=== PATIENT | male | born 1955 | race Two or more races ===

== ENCOUNTER 2022-12-17 18:10 | Emergency (ER) | payer OTHER, SELFPAY ==
[2022-12-17 18:15] VITALS: BP 156/89; PULSE 76; RESP 20; TEMP 36.6; O2SAT 96; BMI 29.6
--- NOTE | 2022-12-17 18:30 | CT_ITS ---
The [address] [address] Patient Name: JIMBO CASTILLO MRN: [facility]:[id number] date: 1955 Sex: M Assigned Patient Location: ER Current Patient Location: ER Accession/Order Number: [id number] Exam Date: 12/17/2022 18:53 Report Date: 12/17/2022 19:36 At the request of: MELISSA BONILLA Procedure: CT abdomen pelvis wo con EXAM: CT abdomen pelvis wo con HISTORY: Kidney stone COMPARISON: 09/10/2021 TECHNIQUE: Axial CT imaging was performed through the abdomen and pelvis without intravenous contrast. Multiplanar reformats were performed. Dose reduction techniques were achieved by using automated exposure control and/or adjustment of mA and/or kV according to patient size and/or use of iterative reconstruction technique. FINDINGS: Lung bases: Lung bases are clear. No pleural effusion. GI upper: Unremarkable. Liver: Normal size and contour. Gallbladder: Cholelithiasis without evidence of acute cholecystitis. Biliary system: No intra or extrahepatic biliary ductal dilatation. Pancreas: Unremarkable. Spleen: There is splenomegaly, the spleen measuring approximately 14 cm AP. Adrenal glands: Normal adrenal glands. Kidneys/ureters: Again, there are numerous simple cysts bilaterally. No nephrolithiasis. Both ureters are normal in caliber and course to the bladder. Vessels: No aneurysmal dilatation of the aorta. Atherosclerotic disease is noted. Retroperitoneum: No lymphadenopathy. Small bowel: No wall thickening or dilatation. Colon: No wall thickening or dilatation. Appendix: Appendix is identified with normal appearance. Peritoneal cavity: No free fluid or pneumoperitoneum. Lower : Unremarkable. Bones:Multilevel spondylosis. No acute bony abnormality. Soft tissues: No acute finding. Additional findings: None. CT/CT abdomen pelvis wo con IMPRESSION: Numerous simple renal cysts consistent with the known polycystic kidney disease. Splenomegaly. No renal or ureteral calculus is identified. Electronically authenticated by: Skyler RIVAS Date: 12/17/2022 19:36
--- NOTE | 2022-12-17 18:31 | ED_ITS ---
HPI - General Adult General Chief complaint: Back Pain/Injury Stated complaint: BACK PAIN Time Seen by Provider: 12/17/22 18:26 Source: patient Mode of arrival: walk-in Limitations: no limitations History of Present Illness HPI narrative: Patient is a 67-year-old male who presents to the emergency department for a five day history of pain across his low back. He states he thought he saw some blood in his urine. He called the SD and his SD doctor told him that he has a history of fatty liver and needed to come to the emergency department for lab work. He has had no fevers or vomiting but does feel nauseous. He has a history of crystals in the kidneys although he denies that he has never had a kidney stone. Pain is worse with movement in the low back and he does occasionally have some tingling to the right leg. He denies any specific mechanism of injury or trauma. No medications taken prior to arrival. Related Data Previous Rx's Medication Instructions Recorded hydrocodone 5 mg-acetaminophen 325 1 tab PO Q6H PRN pain #8 tabs 12/17/22 mg tablet methocarbamol 750 mg tablet 750 mg PO TID PRN pain #20 tabs 12/17/22 ondansetron 4 mg disintegrating 4 mg PO Q6H PRN nausea and 12/17/22 tablet vomiting #12 tabs Allergies Allergy/AdvReac Type Severity Reaction Status Date / Time amoxicillin Allergy Severe shortness Verified 12/17/22 18:19 of breath lisinopril Allergy Severe Verified 12/17/22 18:19 Review of Systems ROS Constitutional Denies: fever or chills Ears, nose, mouth, and throat Denies: throat pain Respiratory Denies: shortness of breath Gastrointestinal Reports: nausea; Denies: abdominal pain or vomiting Genitourinary Reports: blood in urine; Denies: painful urination Musculoskeletal Reports: back pain Neurological Denies: headache Hematologic/Lymphatic Denies: easy bruising Exam Narrative Exam Narrative: Gen.: Awake, alert, in no distress Head: Normocephalic, atraumatic ENT: Moist mucous membranes Respiratory: No respiratory distress Back: No bony point tenderness of the T-spine or L-spine. Diffuse tenderness of the paraspinal muscles of the lumbar spine. No obvious deformity or step-off. No CVA tenderness. Extremities: Moves extremities equally, no injuries noted. Normal dorsiflexion and plantarflexion of the lower extremities with no decrease in sensation to the medial thighs, normal hip flexion bilaterally Psych: Normal mood and affect Neuro: No focal neuro deficit Skin: Warm, dry, intact Constitutional Vital Signs, click to edit/add: Last Vital Signs Temp 98 F 12/17/22 18:15 Pulse 76 12/17/22 18:15 Resp 20 12/17/22 18:15 BP 156/89 H 12/17/22 18:15 Pulse Ox 96 12/17/22 18:15 O2 Del Method Room Air 12/17/22 18:15 Course Vital Signs Vital signs: Vital Signs Temperature 98 F 12/17/22 18:15 Pulse Rate 76 12/17/22 18:15 Respiratory Rate 20 12/17/22 18:15 Blood Pressure 156/89 H 12/17/22 18:15 Pulse Oximetry 96 12/17/22 18:15 Oxygen Delivery Method Room Air 12/17/22 18:15 Temperature 98 F 12/17/22 18:15 Pulse Rate 76 12/17/22 18:15 Respiratory Rate 20 12/17/22 18:15 Blood Pressure 156/89 H 12/17/22 18:15 Pulse Oximetry 96 12/17/22 18:15 Oxygen Delivery Method Room Air 12/17/22 18:15 Medical Decision Making MDM Narrative Medical decision making narrative: Patient with chronic kidney disease, kidney function has improved as well as LFTs improved from previous lab studies last year. Patient with no leukocytosis or evidence of urinary tract infection. CT scan shows polycystic kidneys which is not a new finding for the patient, no other evidence of acute abnormalities noted on scan. Patient's exam and history are consistent with musculoskeletal pain. Patient will be discharged home with muscle relaxants and a short course of analgesics. Follow-up with PCP and return to the Emergency Room if symptoms change or worsen. Medical Records Medical records reviewed: Yes I reviewed the patient's medical records Lab Data Lab results reviewed: Yes I reviewed the patient's lab results Labs: Lab Results 12/17/22 12/17/22 Range/Units 18:45 18:50 WBC 5.7 (4.0-11.0) 10^3/uL RBC 4.66 L (4.70-6.10) 10^6/uL Hgb 15.4 (14.0-18.0) g/dL Hct 43.6 (42.0-54.0) % MCV 93.6 (80.0-94.0) fL MCH 33.0 (25.9-34.0) pg MCHC 35.3 H (29.9-35.2) g/dL RDW 13.1 (11.0-15.0) % Plt Count 82 L (150-450) 10^3/uL MPV 11.5 (9.5-13.5) fL Neut % (Auto) 67.2 (43.0-75.0) % Lymph % (Auto) 23.6 (20.5-60.0) % [place] % (Auto) 7.0 (1.7-12.0) % Eos % (Auto) 1.6 (0.9-7.0) % Baso % (Auto) 0.4 (0.2-2.0) % Neut # (Auto) 3.8 (1.4-6.5) 10^3/uL Lymph # (Auto) 1.4 (1.2-3.8) 10^3/uL [place] # (Auto) 0.4 (0.3-0.8) 10^3/uL Eos # (Auto) 0.1 (0.0-0.7) 10^3/uL Baso # (Auto) 0.0 (0.0-0.1) 10^3/uL Abs Immat Gran (auto) 0.01 (0.00-0.03) 10^3/uL Imm/Tot Granulo (auto) 0.2 (0.0-0.5) % Sodium 136 (136-145) mmol/L Potassium 3.7 (3.5-5.1) mmol/L Chloride 99 (98-107) mmol/L Carbon Dioxide 25.8 (21.0-32.0) mmol/L Anion Gap 14.9 BUN 20.0 H (7.0-18.0) mg/dL Creatinine 1.56 H (0.70-1.30) mg/dL Est GFR ( Amer) 54 L (>=60) Est GFR (Non-Af Amer) 45 L (>=60) BUN/Creatinine Ratio 12.8 Glucose 157 H (74-106) mg/dL Calcium 9.4 (8.5-10.1) mg/dL Total Bilirubin 1.1 H (0.2-1.0) mg/dL AST 55 H (15-37) U/L ALT 61 (16-63) U/L Alkaline Phosphatase 148 H (46-116) U/L Total Protein 8.1 (6.4-8.2) g/dL Albumin 3.9 (3.4-5.0) g/dL Globulin 4.2 g/dL Albumin/Globulin Ratio 0.9 Urine Color Dk. yellow (YELLOW) Urine Clarity Clear (CLEAR) Urine pH 6.0 (5.0-9.0) Ur Specific [place] 1.020 (1.005-1.025) Urine Protein 100 A (NEG/TRACE) mg/dL Urine Glucose (UA) Negative (NEGATIVE) mg/dL Urine Ketones Trace A (NEGATIVE) mg/dL Urine Occult Blood Small A (NEGATIVE) Urine Nitrite Negative (NEGATIVE) Urine Bilirubin Negative (NEGATIVE) Urine Urobilinogen 2.0 A (0.2-1.0) EU/dL Ur Leukocyte Esterase Negative (NEGATIVE) Urine RBC 0-2 (0-2) #/HPF Urine WBC 0-2 A (NONE SEEN) #/HPF Ur Squamous Epith Cells Rare (NONE/RARE) #/LPF Urine Crystals None seen (None Seen) #/HPF Urine Bacteria None seen (NONE SEEN) #/HPF Urine Casts None seen (NONE SEEN) #/LPF Urine Mucus None seen (NONE SEEN) Ur Culture Indicated? No Imaging Data CT scan - abdomen: Attestation: I have reviewed the pertinent imaging results. Radiologist's impression: Procedure: CT abdomen pelvis wo con EXAM: CT abdomen pelvis wo con HISTORY: Kidney stone COMPARISON: 09/10/2021 TECHNIQUE: Axial CT imaging was performed through the abdomen and pelvis without intravenous contrast. Multiplanar reformats were performed. Dose reduction techniques were achieved by using automated exposure control and/or adjustment of mA and/or kV according to patient size and/or use of iterative reconstruction technique. FINDINGS: Lung bases: Lung bases are clear. No pleural effusion. GI upper: Unremarkable. Liver: Normal size and contour. Gallbladder: Cholelithiasis without evidence of acute cholecystitis. Biliary system: No intra or extrahepatic biliary ductal dilatation. Pancreas: Unremarkable. Spleen: There is splenomegaly, the spleen measuring approximately 14 cm AP. Adrenal glands: Normal adrenal glands. Kidneys/ureters: Again, there are numerous simple cysts bilaterally. No nephrolithiasis. Both ureters are normal in caliber and course to the bladder. Vessels: No aneurysmal dilatation of the aorta. Atherosclerotic disease is noted. Retroperitoneum: No lymphadenopathy. Small bowel: No wall thickening or dilatation. Colon: No wall thickening or dilatation. Appendix: Appendix is identified with normal appearance. Peritoneal cavity: No free fluid or pneumoperitoneum. Lower : Unremarkable. Bones:Multilevel spondylosis. No acute bony abnormality. Soft tissues: No acute finding. Additional findings: None. IMPRESSION: Numerous simple renal cysts consistent with the known polycystic kidney disease. Splenomegaly. No renal or ureteral calculus is identified. Electronically authenticated by: Skyler RIVAS Date: 12/17/2022 19:36 Discharge Plan Discharge Chief Complaint: Back Pain/Injury Clinical Impression: Low back pain Patient Disposition: Home, Self-Care Time of Disposition Decision: 19:54 Condition: Good Prescriptions / Home Meds: New hydrocodone-acetaminophen 5-325 mg tablet 1 tab PO Q6H PRN (Reason: pain) Qty: 8 0RF Rx Instructions: DX: M54.5 methocarbamol 750 mg tablet 750 mg PO TID PRN (Reason: pain) Qty: 20 0RF ondansetron 4 mg tablet,disintegrating 4 mg PO Q6H PRN (Reason: nausea and vomiting) Qty: 12 0RF Instructions: Acute Low Back Pain (ED) Additional Instructions: Follow up with [facility] in 5-7 days Stand Alone Forms: Portal Instructions Referrals: Physician,Non-Staff, MD [Primary Care Provider] - 1 week Discharge Date/Time: 12/17/22 20:16
[2022-12-17] MEDS: 0.9 % SODIUM CHLORIDE 1,000 ML 999 ML IV (18:44)
[2022-12-17] MEDS: KETOROLAC TROMETHAMINE 30 MG/ML VIAL IVP (18:45)
[2022-12-17] MEDS: ONDANSETRON PF 4 MG/2 ML VIAL IV (18:45)
[2022-12-17 18:57] LABS: Basophils Percent Auto 0.4 % (0.2-2.0); Eosinophils Absolute Auto 0.1 10^3/uL (0.0-0.7); Eosinophils Percent Auto 1.6 % (0.9-7.0); Hematocrit 43.6 % (42.0-54.0); Hemoglobin 15.4 g/dL (14.0-18.0); Immature Granulocytes Abs Auto 0.01 10^3/uL (0.00-0.03); Immature Granulocytes Pct Auto 0.2 % (0.0-0.5); Lymphocytes Absolute Auto 1.4 10^3/uL (1.2-3.8); Lymphocytes Percent Auto 23.6 % (20.5-60.0); Mean Corpuscular HGB Conc 35.3 g/dL (29.9-35.2); Mean Corpuscular Volume 93.6 fL (80.0-94.0); Mean Platelet Volume 11.5 fL (9.5-13.5); Monocytes Absolute Auto 0.4 10^3/uL (0.3-0.8); Neutrophils Absolute Auto 3.8 10^3/uL (1.4-6.5); Neutrophils Percent Auto 67.2 % (43.0-75.0); Red Blood Count 4.66 10^6/uL (4.70-6.10); Red Cell Distribution Width 13.1 % (11.0-15.0); White Blood Count 5.7 10^3/uL (4.0-11.0)
[2022-12-17 19:03] LABS: Bilirubin Urine NEGATIVE (NEGATIVE); Blood Urine SMALL (NEGATIVE); Clarity Urine CLEAR (CLEAR); Color Urine DK. YELLOW (YELLOW); Glucose Urine UA NEGATIVE (NEGATIVE); Ketones Urine TRACE mg/dL (NEGATIVE); Leukocyte Esterase Urine NEGATIVE (NEGATIVE); Nitrite Urine NEGATIVE (NEGATIVE); Protein Urine 100 mg/dL (NEG/TRACE)
[2022-12-17 19:05] LABS: Urine Microscopic Indicated YES
[2022-12-17 19:09] LABS: Bacteria Urine NONE SEEN #/HPF (NONE SEEN); Cast Seen? NONE SEEN #/LPF (NONE SEEN); Crystals Seen? None Seen #/HPF (None Seen); Mucus Urine NONE SEEN (NONE SEEN); RBC Urine 0-2 #/HPF (0-2); Squamous Epithelial Cell Urine RARE #/LPF (NONE/RARE); Urine Culture Indicated NO; WBC Urine 0-2 #/HPF (NONE SEEN)
[2022-12-17 19:15] LABS: Alanine Aminotransferase 61 U/L (16-63); Albumin Globulin Ratio 0.9; Albumin Level 3.9 g/dL (3.4-5.0); Alkaline Phosphatase 148 U/L (46-116); Anion Gap 14.9; Aspartate Amino Transferase 55 U/L (15-37); BUN Creatinine Ratio 12.8; Bilirubin Total 1.1 mg/dL (0.2-1.0); Calcium 9.4 mg/dL (8.5-10.1); Carbon Dioxide 25.8 mmol/L (21.0-32.0); Chloride 99 mmol/L (98-107); Estimated GFR (African America 54 (>=60); Estimated GFR (Non-African Ame 45 (>=60); Globulin 4.2 g/dL; Glucose 157 mg/dL (74-106); Potassium 3.7 mmol/L (3.5-5.1); Sodium 136 mmol/L (136-145); Total Protein 8.1 g/dL (6.4-8.2)
[2022-12-17 19:19] LABS: Platelet Count 82 10^3/uL (150-450)
== END 2022-12-17 20:16 | disposition home or self-care (01) ==
PROVIDERS: Physician Assistant; Emergency Provider Internal Medicine
DX: M54.50 Low back pain, unspecified (principal); K76.0 Fatty (change of) liver, not elsewhere classified; Q61.3 Polycystic kidney, unspecified
CPT/HCPCS: 36415; 74176; 80053; 81001; 85025; 99284

== ENCOUNTER 2023-08-05 02:52 | Emergency (ER) | payer MEDICARE, SELFPAY ==
[2023-08-05 02:57] VITALS: BP 144/75; PULSE 70; TEMP 36.5; O2SAT 97; BMI 29.8
--- NOTE | 2023-08-05 03:19 | ED_ITS ---
HPI - Abdominal Pain General Chief Complaint: Abdominal Pain Stated Complaint: RIB PAIN Time Seen by Provider: 08/05/23 03:13 Source: patient Mode of arrival: walk-in Limitations: no limitations History of Present Illness HPI narrative: patient presents complaining of epigastric pain that started about one hour ago. No associated dyspnea, chest pain or nausea. Pain does not radiate. Related Data Home Medications ?Medication ?Instructions ?Recorded ?Confirmed Unobtainable 08/05/23 08/05/23 Allergies Allergy/AdvReac Type Severity Reaction Status Date / Time amoxicillin Allergy Severe shortness Verified 08/05/23 02:57 of breath lisinopril Allergy Severe Verified 08/05/23 02:57 Review of Systems ROS Status of ROS 10 or more systems reviewed and unremark able except as noted in history and below Exam Constitutional Vital Signs, click to edit/add: Last Vital Signs Temp 97.7 F 08/05/23 02:57 Pulse 70 08/05/23 02:57 Resp 18 08/05/23 02:57 BP 144/75 H 08/05/23 02:57 Pulse Ox 97 08/05/23 02:57 O2 Del Method Room Air 08/05/23 02:57 Common normals: no apparent distress, average body habitus, oriented x3, no limitations and healthy appearing HENMT Common normals: normocephalic and head/scalp atraumatic Eye Common normals: EOMs intact bilaterally and conjunctivae normal Respiratory Common normals: normal respiratory effort, no retractions, no use of accessory muscles and clear to auscultation bilaterally Cardio Common normals: regular rate, regular rhythm, S1 normal heart sound and S2 normal heart sound GI Other: mild epigastric tenderness. no guarding Extremity Common normals: normal to inspection and full ROM Neuro Common normals: oriented x3 and no focal motor deficits Psych Appearance: grossly normal Course Vital Signs Vital signs: Vital Signs Temperature 97.7 F 08/05/23 02:57 Pulse Rate 70 08/05/23 02:57 Respiratory Rate 18 08/05/23 02:57 Blood Pressure 144/75 H 08/05/23 02:57 Pulse Oximetry 97 08/05/23 02:57 Oxygen Delivery Method Room Air 08/05/23 02:57 Temperature 97.7 F 08/05/23 02:57 Pulse Rate 70 08/05/23 02:57 Respiratory Rate 18 08/05/23 02:57 Blood Pressure 144/75 H 08/05/23 02:57 Pulse Oximetry 97 08/05/23 02:57 Oxygen Delivery Method Room Air 08/05/23 02:57 MDM - Abdominal Pain MDM Narrative Medical decision making narrative: patient presents with epigastric pain. no relief with GI cocktail. Labs with mild elevation of lipase. Also elevated alk phos. CT without evidence of pancreatitis and normal bile duct. Re demonstration of gallstones. He is feeling better after Fentanyl 50. abdomen is nontender. First troponin normal at 70. this presentation might be biliary colic that has now resolved but will need Repeat troponin. repeat troponin has returned as neg. Patient remains asymptomatic and will be discharged Lab Data Labs: Lab Results 08/05/23 08/05/23 Range/Units 03:40 05:58 WBC 3.8 L (4.0-11.0) 10^3/uL RBC 4.30 L (4.70-6.10) 10^6/uL Hgb 14.2 (14.0-18.0) g/dL Hct 40.5 L (42.0-54.0) % MCV 94.2 H (80.0-94.0) fL MCH 33.0 (25.9-34.0) pg MCHC 35.1 (29.9-35.2) g/dL RDW 13.4 (11.0-15.0) % Plt Count 53 L (150-450) 10^3/uL MPV 11.4 (9.5-13.5) fL Neut % (Auto) 64.8 (43.0-75.0) % Lymph % (Auto) 25.2 (20.5-60.0) % [place] % (Auto) 6.6 (1.7-12.0) % Eos % (Auto) 2.1 (0.9-7.0) % Baso % (Auto) 0.5 (0.2-2.0) % Neut # (Auto) 2.5 (1.4-6.5) 10^3/uL Lymph # (Auto) 1.0 L (1.2-3.8) 10^3/uL [place] # (Auto) 0.3 (0.3-0.8) 10^3/uL Eos # (Auto) 0.1 (0.0-0.7) 10^3/uL Baso # (Auto) 0.0 (0.0-0.1) 10^3/uL Abs Immat Gran (auto) 0.03 (0.00-0.03) 10^3/uL Imm/Tot Granulo (auto) 0.8 H (0.0-0.5) % Sodium 140 (136-145) mmol/L Potassium 3.6 (3.5-5.1) mmol/L Chloride 105 (98-107) mmol/L Carbon Dioxide 23.8 (21.0-32.0) mmol/L Anion Gap 14.8 BUN 17.0 (7.0-18.0) mg/dL Creatinine 1.15 (0.70-1.30) mg/dL Est GFR ( Amer) >60 (>=60) Est GFR (Non-Af Amer) >60 (>=60) BUN/Creatinine Ratio 14.8 Glucose 120 H (74-106) mg/dL Lactate 1.3 (0.4-2.0) mmol/L Calcium 8.9 (8.5-10.1) mg/dL Total Bilirubin 0.6 (0.2-1.0) mg/dL AST 40 H (15-37) U/L ALT 42 (16-63) U/L Alkaline Phosphatase 223 H (46-116) U/L Troponin I High Sens 70.5 76.0 (4.0-76.1) pg/mL Total Protein 7.2 (6.4-8.2) g/dL Albumin 3.6 (3.4-5.0) g/dL Globulin 3.6 g/dL Albumin/Globulin Ratio 1.0 Lipase 94.0 H (16.0-77.0) U/L Imaging Data Abdominal x-ray: Radiologist's impression: ITS Impressions Abdomen/Pelvis CT 08/05/23 04:21 IMPRESSION: 1. There is no evidence of pancreatitis or biliary obstruction. Gallstones redemonstrated. 2. Indeterminate small soft tissue density nodule in the root of the mesentery. This may reflect mesenteritis. There is no lymphadenopathy or adjacent bowel edema. 3. Polycystic kidneys, unchanged. No obstructive uropathy. Electronically authenticated by: ROSE JORDAN Date: 08/05/2023 05:47 Discharge Plan Discharge Stand Alone Forms: Portal Instructions Chief Complaint: Abdominal Pain Clinical Impression: Abdominal pain Patient Disposition: Home, Self-Care Mode of Transportation: Private Vehicle Prescriptions / Home Meds: No Action Unobtainable Print Language: Lao Instructions: Gallstones (ED) Additional Instructions: follow up with your family doctor Referrals: Physician,Non-Staff, MD [Primary Care Provider] - 1 week
[2023-08-05 03:49] LABS: Basophils Percent Auto 0.5 % (0.2-2.0); Eosinophils Absolute Auto 0.1 10^3/uL (0.0-0.7); Eosinophils Percent Auto 2.1 % (0.9-7.0); Hematocrit 40.5 % (42.0-54.0); Hemoglobin 14.2 g/dL (14.0-18.0); Immature Granulocytes Abs Auto 0.03 10^3/uL (0.00-0.03); Immature Granulocytes Pct Auto 0.8 % (0.0-0.5); Lymphocytes Percent Auto 25.2 % (20.5-60.0); Mean Corpuscular HGB Conc 35.1 g/dL (29.9-35.2); Mean Corpuscular Volume 94.2 fL (80.0-94.0); Mean Platelet Volume 11.4 fL (9.5-13.5); Monocytes Absolute Auto 0.3 10^3/uL (0.3-0.8); Monocytes Percent Auto 6.6 % (1.7-12.0); Neutrophils Absolute Auto 2.5 10^3/uL (1.4-6.5); Neutrophils Percent Auto 64.8 % (43.0-75.0); Platelet Count 53 10^3/uL (150-450); Red Cell Distribution Width 13.4 % (11.0-15.0); White Blood Count 3.8 10^3/uL (4.0-11.0)
[2023-08-05] MEDS: 0.9 % SODIUM CHLORIDE 1,000 ML 999 ML IV (03:51)
[2023-08-05] MEDS: lidocaine HCL 15 ML, MAG HYDROX/ALUMINUM HYD/SIMETH 30 ML, HYOSCYAMINE SULFATE 0.25 MG PO (03:52)
[2023-08-05 04:04] LABS: Alanine Aminotransferase 42 U/L (16-63); Albumin Level 3.6 g/dL (3.4-5.0); Alkaline Phosphatase 223 U/L (46-116); Anion Gap 14.8; Aspartate Amino Transferase 40 U/L (15-37); BUN Creatinine Ratio 14.8; Bilirubin Total 0.6 mg/dL (0.2-1.0); Calcium 8.9 mg/dL (8.5-10.1); Carbon Dioxide 23.8 mmol/L (21.0-32.0); Chloride 105 mmol/L (98-107); Estimated GFR (African America >60 (>=60); Estimated GFR (Non-African Ame >60 (>=60); Globulin 3.6 g/dL; Glucose 120 mg/dL (74-106); Potassium 3.6 mmol/L (3.5-5.1); Sodium 140 mmol/L (136-145); Total Protein 7.2 g/dL (6.4-8.2)
[2023-08-05 04:06] LABS: Lactate/Lactic Acid 1.3 mmol/L (0.4-2.0)
[2023-08-05 04:08] LABS: Troponin I High Sensitivity 70.5 pg/mL (4.0-76.1)
--- NOTE | 2023-08-05 04:21 | CT_ITS ---
The [address] [address] Patient Name: JIMBO CASTILLO MRN: [id number] date: 1955 Sex: M Assigned Patient Location: ER Current Patient Location: ER Accession/Order Number: [id number] Exam Date: 08/05/2023 05:11 Report Date: 08/05/2023 05:47 At the request of: CHITO CONNOR Procedure: CT abdomen pelvis w con EXAM: CT abdomen pelvis w con HISTORY: Pancreatitis. COMPARISON: CT abdomen and pelvis 12/17/2022. TECHNIQUE: Images of the abdomen and pelvis obtained with IV contrast. FINDINGS: Subsegmental atelectasis in both lung bases. No pleural or pericardial fluid. No adrenal mass or retroperitoneal lymphadenopathy. No obstructive uropathy. Polycystic kidneys redemonstrated. There are numerous layering gallstones, no evidence of biliary or pancreatic ductal dilatation. No indication of pancreatitis. Mild splenic enlargement, spleen measures 15 cm in AP dimension. No bowel obstruction, pneumatosis, or pneumoperitoneum. Normal appendix. There is an ill-defined soft tissue density at the root of the mesentery oriented just anterior to the left kidney on axial image 77 measuring 2.3 x 1.3 cm. This is not identified on the prior noncontrast CT performed less than a year ago. No additional mesenteric lymphadenopathy. No pelvic adenopathy or ascites. Prostate and bladder are age-appropriate. No acute bony abnormality. CT/CT abdomen pelvis w con IMPRESSION: 1. There is no evidence of pancreatitis or biliary obstruction. Gallstones redemonstrated. 2. Indeterminate small soft tissue density nodule in the root of the mesentery. This may reflect mesenteritis. There is no lymphadenopathy or adjacent bowel edema. 3. Polycystic kidneys, unchanged. No obstructive uropathy. Electronically authenticated by: ROSE JORDAN Date: 08/05/2023 05:47
[2023-08-05] MEDS: FENTANYL CITRATE/PF 100 MCG/2 ML VIAL 50 MCG IV (04:32)
[2023-08-05 07:50] VITALS: BP 149/80; PULSE 96; TEMP 36.8; O2SAT 98
== END 2023-08-05 07:35 | disposition home or self-care (01) ==
PROVIDERS: Emergency Provider Internal Medicine
DX: R10.9 Unspecified abdominal pain (principal); D69.6 Thrombocytopenia, unspecified
CPT/HCPCS: 36415; 74177; 80053; 83605; 83690; 84484; 85025; 99284; Q9967

== ENCOUNTER 2023-08-05 09:58 | Emergency (ER) | payer MEDICARE, SELFPAY ==
[2023-08-05 10:09] VITALS: BP 183/84; PULSE 81; TEMP 36.8; O2SAT 100; BMI 29.8
--- NOTE | 2023-08-05 10:22 | US_ITS ---
The [address] [address] Patient Name: JIMBO CASTILLO MRN: [id number] date: 1955 Sex: M Assigned Patient Location: ER Current Patient Location: ER Accession/Order Number: [id number] Exam Date: 08/05/2023 10:30 Report Date: 08/05/2023 11:20 At the request of: BERNARDO MEDEROS Procedure: US right upper quadrant EXAMINATION: US right upper quadrant HISTORY: Right upper quadrant pain, stones on CAT scan COMPARISON: CT abdomen pelvis 08/05/2023 TECHNIQUE: Transabdominal evaluation of the right upper quadrant. FINDINGS: LIVER: Normal size and echotexture. Color Doppler demonstrates patent hepatic veins. PORTAL VEIN: Duplex Doppler demonstrates normal hepatopetal flow pattern with flow velocity averaging 34 cm/s. GALLBLADDER: Stones and sludge within gallbladder. No abnormal gallbladder wall thickening or free fluid. Positive sonographic Bass's sign. BILIARY: No abnormal dilation or stones within the duct. Common bile duct diameter is within normal limits. PANCREASE: No visible mass, abnormal atrophy, or duct dilation. KIDNEY: Contains numerous benign-appearing cysts. Size: 14.6 x 7.9 x 10.3 cm US/US right upper quadrant IMPRESSION: 1. Cholelithiasis and positive sonographic Bass's sign, but no ultrasound evidence of acute cholecystitis. 2. Polycystic kidney disease. Electronically authenticated by: JESUS SOUZA Date: 08/05/2023 11:20
--- NOTE | 2023-08-05 10:22 | ECG_ITS ---
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
--- NOTE | 2023-08-05 10:24 | ED_ITS ---
HPI - Abdominal Pain General Chief Complaint: Abdominal Pain Stated Complaint: ABDOMINAL PAIN Time Seen by Provider: 08/05/23 10:16 Source: patient Mode of arrival: walk-in Limitations: no limitations History of Present Illness HPI narrative: 67-year-old male presents to the emergency department for abdominal pain. He was seen here last night and CAT scan showed gallstones. He was feeling better and he was discharged home but then the pain came back and he returned. He points to the right upper quadrant. No fever or injury. The pain is severe and continuous. Related Data Previous Rx's ?Medication ?Instructions ?Recorded dicyclomine 10 mg capsule 10 mg PO QID PRN abdominal pain 08/05/23 #20 caps tramadol 50 mg tablet 50 mg PO Q6H PRN pain 5 days #20 08/05/23 tabs Allergies Allergy/AdvReac Type Severity Reaction Status Date / Time amoxicillin Allergy Severe shortness Verified 08/05/23 02:57 of breath lisinopril Allergy Severe Verified 08/05/23 02:57 Review of Systems ROS Narrative A ten point review of systems is negative except as noted above. Exam Narrative Exam Narrative: Nurses note and vital signs reviewed and patient is not hypoxic. General: The patient appears uncomfortable. Skin: Warm, dry, no pallor noted. There is no rash noted. Head: Normocephalic, atraumatic Eye: Normal conjunctiva, no drainage Ears, Nose, Mouth, and Throat: oral mucosa is moist. Nares patent. Cardiovascular: Regular Rate and Rhythm Respiratory: Patient is in no distress, no accessory muscle use, lungs are clear to auscultation, no wheezing, rales or rhonchi Back: non-tender GI: Tender in the right upper quadrant, no distention Musculoskeletal: The patient has no evidence of calf tenderness, no pitting edema, symmetrical pulses noted bilaterally Neurological: A&O, normal speech Psychiatric: Cooperative Constitutional Vital Signs, click to edit/add: Last Vital Signs Temp 98.2 F 08/05/23 10:09 Pulse 81 08/05/23 10:09 Resp 24 H 08/05/23 10:09 BP 183/84 H 08/05/23 10:09 Pulse Ox 100 08/05/23 10:09 O2 Del Method Room Air 08/05/23 10:09 Course Vital Signs Vital signs: Vital Signs Temperature 98.2 F 08/05/23 10:09 Pulse Rate 81 08/05/23 10:09 Respiratory Rate 24 H 08/05/23 10:09 Blood Pressure 183/84 H 08/05/23 10:09 Pulse Oximetry 100 08/05/23 10:09 Oxygen Delivery Method Room Air 08/05/23 10:09 Temperature 98.2 F 08/05/23 10:09 Pulse Rate 81 08/05/23 10:09 Respiratory Rate 24 H 08/05/23 10:09 Blood Pressure 183/84 H 08/05/23 10:09 Pulse Oximetry 100 08/05/23 10:09 Oxygen Delivery Method Room Air 08/05/23 10:09 MDM - Abdominal Pain MDM Narrative Medical decision making narrative: Gallbladder ultrasound report shows no acute cholecystitis. CAT scan and gallbladder report from today were reviewed and he has a questionable lymph node on the studies that was not there last fall. Case is discussed with Dr. Aquino who is reviewed his studies. The patient has thrombocytopenia with a platelet count of 50 and the cause is uncertain. He does not drink alcohol heavily. He is referred to hematology for follow-up. At this point he does not need to be admitted to the hospital. Treatment diagnosis and follow-up were discussed thoroughly. Differential Diagnosis Differential diagnosis: Likely abdominal pain, acute appendicitis, calculus of kidney, constipation, diverticulitis, pancreatitis and other (Colitis) Lab Data Attestation: I reviewed the patient's lab results. Labs: Lab Results 08/05/23 Range/Units 10:35 WBC 4.1 (4.0-11.0) 10^3/uL RBC 4.48 L (4.70-6.10) 10^6/uL Hgb 14.7 (14.0-18.0) g/dL Hct 41.7 L (42.0-54.0) % MCV 93.1 (80.0-94.0) fL MCH 32.8 (25.9-34.0) pg MCHC 35.3 H (29.9-35.2) g/dL RDW 13.2 (11.0-15.0) % Plt Count 51 L (150-450) 10^3/uL MPV 11.9 (9.5-13.5) fL Neut % (Auto) 68.7 (43.0-75.0) % Lymph % (Auto) 22.6 (20.5-60.0) % [place] % (Auto) 6.3 (1.7-12.0) % Eos % (Auto) 1.7 (0.9-7.0) % Baso % (Auto) 0.5 (0.2-2.0) % Neut # (Auto) 2.8 (1.4-6.5) 10^3/uL Lymph # (Auto) 0.9 L (1.2-3.8) 10^3/uL [place] # (Auto) 0.3 (0.3-0.8) 10^3/uL Eos # (Auto) 0.1 (0.0-0.7) 10^3/uL Baso # (Auto) 0.0 (0.0-0.1) 10^3/uL Abs Immat Gran (auto) 0.01 (0.00-0.03) 10^3/uL Imm/Tot Granulo (auto) 0.2 (0.0-0.5) % Sodium 137 (136-145) mmol/L Potassium 3.6 (3.5-5.1) mmol/L Chloride 102 (98-107) mmol/L Carbon Dioxide 23.2 (21.0-32.0) mmol/L Anion Gap 15.4 BUN 14.0 (7.0-18.0) mg/dL Creatinine 1.17 (0.70-1.30) mg/dL Est GFR ( Amer) >60 (>=60) Est GFR (Non-Af Amer) >60 (>=60) BUN/Creatinine Ratio 12.0 Glucose 171 H (74-106) mg/dL Calcium 9.1 (8.5-10.1) mg/dL Total Bilirubin 0.8 (0.2-1.0) mg/dL Direct Bilirubin 0.2 (0.0-0.2) mg/dL AST 47 H (15-37) U/L ALT 51 (16-63) U/L Alkaline Phosphatase 195 H (46-116) U/L Total Protein 7.8 (6.4-8.2) g/dL Albumin 3.6 (3.4-5.0) g/dL Globulin 4.2 g/dL Albumin/Globulin Ratio 0.9 Amylase 102 (25-115) U/L Lipase 65.0 (16.0-77.0) U/L Imaging Data Gallbladder ultrasound: Radiologist's impression: ITS Impressions Upper Quadrant Ultrasound 08/05/23 10:22 IMPRESSION: 1. Cholelithiasis and positive sonographic Bass's sign, but no ultrasound evidence of acute cholecystitis. 2. Polycystic kidney disease. Electronically authenticated by: JESUS SOUZA Date: 08/05/2023 11:20 Discharge Plan Discharge Stand Alone Forms: Portal Instructions Chief Complaint: Abdominal Pain Clinical Impression: Abdominal pain, Thrombocytopenia Patient Disposition: Home, Self-Care Time of Disposition Decision: 14:16 Condition: Good Mode of Transportation: Private Vehicle Prescriptions / Home Meds: New tramadol 50 mg tablet 50 mg PO Q6H PRN (Reason: pain) 5 Days Qty: 20 0RF dicyclomine 10 mg capsule 10 mg PO QID PRN (Reason: abdominal pain) Qty: 20 0RF Print Language: Maltese Instructions: Abdominal Pain (ED) Additional Instructions: Follow-up with Dr. Aquino for the abdominal pain and Dr. Ortiz for the low p latelet count. Referrals: Lorraine Ortiz MD [Physician] - 1 week Bharat Aquino MD [Physician] - 1 week PhysicianAgnes-MD Chay [Primary Care Provider] - 1 week
[2023-08-05] MEDS: MORPHINE SULFATE 4 MG/ML VIAL IV (10:41)
[2023-08-05] MEDS: ONDANSETRON PF 4 MG/2 ML VIAL IV (10:41)
[2023-08-05 10:52] LABS: Basophils Percent Auto 0.5 % (0.2-2.0); Eosinophils Absolute Auto 0.1 10^3/uL (0.0-0.7); Eosinophils Percent Auto 1.7 % (0.9-7.0); Hematocrit 41.7 % (42.0-54.0); Hemoglobin 14.7 g/dL (14.0-18.0); Immature Granulocytes Abs Auto 0.01 10^3/uL (0.00-0.03); Immature Granulocytes Pct Auto 0.2 % (0.0-0.5); Lymphocytes Absolute Auto 0.9 10^3/uL (1.2-3.8); Lymphocytes Percent Auto 22.6 % (20.5-60.0); Mean Corpuscular HGB Conc 35.3 g/dL (29.9-35.2); Mean Corpuscular Hemoglobin 32.8 pg (25.9-34.0); Mean Corpuscular Volume 93.1 fL (80.0-94.0); Mean Platelet Volume 11.9 fL (9.5-13.5); Monocytes Absolute Auto 0.3 10^3/uL (0.3-0.8); Monocytes Percent Auto 6.3 % (1.7-12.0); Neutrophils Absolute Auto 2.8 10^3/uL (1.4-6.5); Neutrophils Percent Auto 68.7 % (43.0-75.0); Platelet Count 51 10^3/uL (150-450); Red Blood Count 4.48 10^6/uL (4.70-6.10); Red Cell Distribution Width 13.2 % (11.0-15.0); White Blood Count 4.1 10^3/uL (4.0-11.0)
[2023-08-05 11:09] LABS: Alanine Aminotransferase 51 U/L (16-63); Albumin Globulin Ratio 0.9; Albumin Level 3.6 g/dL (3.4-5.0); Alkaline Phosphatase 195 U/L (46-116); Amylase 102 U/L (25-115); Anion Gap 15.4; Aspartate Amino Transferase 47 U/L (15-37); Bilirubin Direct 0.2 mg/dL (0.0-0.2); Bilirubin Total 0.8 mg/dL (0.2-1.0); Calcium 9.1 mg/dL (8.5-10.1); Carbon Dioxide 23.2 mmol/L (21.0-32.0); Chloride 102 mmol/L (98-107); Estimated GFR (African America >60 (>=60); Estimated GFR (Non-African Ame >60 (>=60); Globulin 4.2 g/dL; Glucose 171 mg/dL (74-106); Potassium 3.6 mmol/L (3.5-5.1); Sodium 137 mmol/L (136-145); Total Protein 7.8 g/dL (6.4-8.2)
[2023-08-05] MEDS: TRAMADOL HCL 50 MG TABLET PO (14:26)
== END 2023-08-05 14:33 | disposition home or self-care (01) ==
PROVIDERS: Emergency Provider Emergency Medicine
DX: R10.9 Unspecified abdominal pain (principal); D69.6 Thrombocytopenia, unspecified
CPT/HCPCS: 36415; 74177; 76705; 80048; 80053; 80076; 82150; 83605; 83690; 84484; 85025; 93005; 96374; 96375; 99284; 99285; Q9967

== ENCOUNTER 2023-08-12 12:44 | Emergency (ER) | payer MEDICARE, SELFPAY ==
[2023-08-12] VITALS (23 sets, daily range): BP systolic 141–171; BP diastolic 78–97; PULSE 66–82; TEMP 37.1; O2SAT 92–97; BMI 29.8
--- NOTE | 2023-08-12 13:20 | ECG_ITS ---
[facility] Test Date: 2023-08-12 Pat Name: JIMBO CASTILLO Department: Room: - Gender: Male [employer] Score[employer] Operator: : 1955 Requested By: Order Number: [id number] Reading MD: ARTURO SHIN Measurements Intervals [place] Rate: 74 P: 36 NM: 130 QRS: 8 QRSD: 100 T: -6 QT: 412 QTc: 440 Interpretive Statements 1100 Sinus rhythm 3624 Possible inferior myocardial infarction, age undetermined 9150 abnormal ECG Compared to ECG 08/05/2023 10:34:49 Myocardial infarct finding now present Electronically Signed On 08-12-2023 23:13:55 EDT by ARTURO SHIN
--- NOTE | 2023-08-12 13:24 | ED_ITS ---
HPI HPI - General Adult General Chief complaint: Abdominal Pain Stated complaint: abdominal pain Time Seen by Provider: 08/12/23 13:09 Source: patient Mode of arrival: ambulance Limitations: no limitations History of Present Illness HPI narrative: Patient is a 67-year-old male who presents to the emergency Department for the evaluation of abdominal pain. Patient was discharged from [facility] yesterday where he underwent an EGD. He has been in this emergency department multiple times over the last 2 weeks and was sent to [facility] from the [place] emergency department after he was discharged from this facility. He had an EGD yesterday for thrombocytopenia and low platelet count. He was discharged home with outpatient referrals to GI. He is known to the [facility], he has a liver specialist and GI specialist at the [facility]. He is requesting transfer to a facility that we will remove his gallbladder. He states he is supposed to have his gallbladder removed, he has had issues with jaundice, low abdominal pain since he was in the hospital. He has had no new fevers, vomiting. He states he called 911 to come to this facility today for pain control for his abdominal pain and to be sent to a facility to remove his gallbladder. He denies any other abdominal surgeries. No urinary symptoms. He is not able to eat and drink due to pain and not feeling well today. He is jaundiced at time of initial interview.He states he had a history of heavy alcohol use when he was younger, he does not drink daily for many years. Related Data Home Medications ?Medication ?Instructions ?Recorded ?Confirmed aspirin 81 mg capsule 81 mg PO DAILY 08/12/23 08/12/23 cholecalciferol (vitamin D3) 50 50 mcg PO DAILY 08/12/23 08/12/23 mcg (2,000 unit) capsule losartan 100 mg tablet (Cozaar) 100 mg PO DAILY 08/12/23 08/12/23 nortriptyline 10 mg capsule 10 mg PO .hs 08/12/23 08/12/23 pantoprazole 40 mg tablet,delayed 40 mg PO DAILY 08/12/23 08/12/23 release (Protonix) propranolol 10 mg tablet 10 mg PO BID 08/12/23 08/12/23 Previous Rx's ?Medication ?Instructions ?Recorded dicyclomine 10 mg capsule 10 mg PO QID PRN abdominal pain 08/05/23 #20 caps tramadol 50 mg tablet 50 mg PO Q6H PRN pain 5 days #20 08/05/23 tabs Allergies Allergy/AdvReac Type Severity Reaction Status Date / Time amoxicillin Allergy Severe shortness Verified 08/05/23 02:57 of breath lisinopril Allergy Severe Verified 08/05/23 02:57 Opioid HPI Opioid Management Most Recent Opioid Data: Last Pain Scale 1 08/12/23 20:07 Last ED Pain Assessment 08/12/23 20:07 Last MAR Pain Assessment 08/12/23 19:43 Review of Systems ROS Constitutional Denies: fever or chills Ears, nose, mouth, and throat Denies: throat pain or nasal congestion Cardiovascular Denies: chest pain Respiratory Denies: shortness of breath or cough Gastrointestinal Reports: abdominal pain; Denies: nausea or vomiting Genitourinary Denies: painful urination Musculoskeletal Denies: muscle cramps Integumentary/Breast Denies: rash Neurological Denies: headache Hematologic/Lymphatic Denies: easy bruising or easy bleeding Exam Narrative Exam Narrative: Gen.: Awake, alert, in no distress Head: Normocephalic, atraumatic ENT: Moist mucous membranes, Scleral icterus Respiratory: No respiratory distress, lungs clear bilaterally Cardio: Regular rate and rhythm Gastrointestinal: Abdomen is soft, distended but not rigid, diffusely tender to palpation Extremities: Moves extremities equally Psych: Normal mood and affect Neuro: No focal neuro deficit Skin: Warm, dry, intact Constitutional Vital Signs, click to edit/add: Last Vital Signs Temp 98.8 F 08/12/23 12:56 Pulse 73 08/12/23 21:00 Resp 16 08/12/23 12:56 BP 154/96 H 08/12/23 21:00 Pulse Ox 93 L 08/12/23 21:00 O2 Del Method Room Air 08/12/23 12:56 Course Vital Signs Vital signs: Vital Signs Temperature 98.8 F 08/12/23 12:56 Pulse Rate 75 08/12/23 12:56 Respiratory Rate 16 08/12/23 12:56 Blood Pressure 144/78 H 08/12/23 12:56 Pulse Oximetry 92 L 08/12/23 12:56 Oxygen Delivery Method Room Air 08/12/23 12:56 Temperature 98.8 F 08/12/23 12:56 Pulse Rate 73 08/12/23 21:00 Respiratory Rate 16 08/12/23 12:56 Blood Pressure 154/96 H 08/12/23 21:00 Pulse Oximetry 93 L 08/12/23 21:00 Oxygen Delivery Method Room Air 08/12/23 12:56 Medical Decision Making MDM Narrative Medical decision making narrative: IV established and the patient was given pain medication, nausea medication. Abdomen is distended but not rigid and he is hemodynamically stable. He is requesting transfer to a facility that can manage his conditions, he is known to the GI specialist and liver clinic at [facility]. I discussed the patient with his [facility] in [place], Dr. Castellanos, and it was recommended to send the patient to [facility] via the transfer line. We initiated This transfer immediately, awaiting acceptance for transfer at this time. 1540: I spoke with MARLIN Arredondo For the [facility] transfer line for an update on the patient. At this time his lab studies show elevated bilirubin including direct bilirubin. Lipase is elevating as well. Acceptance by [facility] Surgical team is Pending at this time. We will obtain an ultrasound of the right upper quadrant to assess for new acute obstruction, based on the patient's records that we were able to obtain from his [place] emergency visit, he was transferred to the [facility] with the intention of having an ERCP, suspect the Patient did not have an EGD yesterday but in reality had an MRCP or ERCP. We are still awaiting the discharge summary from [facility] at this time. 1614: Maria Elena From the [facility] transfer line is signing out to the nighttime RNSean. She provided his contact information and updated this hospital that we are waiting on the medicine physician from the [facility] to accept the patient as surgery thinks he should be admitted to the medical service. I also contacted [facility] for operative records, apparently the patient did not have a procedure at [facility] and was in fact at [facility] in [place]. I contacted their medical records department but they are closing shortly and may or may not provide the operative report. At this time we are still awaiting acceptance from the [facility],Patient is hemodynamically stable, he has not had any vomiting in the ER. Ultrasound of the right upper quadrant does not show any evidence of acute cholecystitis 1700: We received a phone call from the [facility] accepting the patient to the emergency department to the care of Dr. Frausto who will be the accepting physician. We expect the patient to be transferred at 10 PM, [facility]. He is still hemodynamically stable, pain is controlled and he has not had any vomiting at this time. 1944: Patient reporting 4/10 pain, 50 mcg of fentanyl given for pain control. We are awaiting transport from [facility] for the patient at this time. He continues to be hemodynamically stable in the ER. 2120: Additional dose of morphine ordered for the patient's trip to [place]. He is resting comfortably with no other focal medical complaints at this time. He was kept n.p.o. while in the emergency department. Stable at time of transfer. Critical care time 35 minutes. Medical Records Medical records reviewed: Yes I reviewed the patient's medical records Lab Data Lab results reviewed: Yes I reviewed the patient's lab results Labs: Lab Results 08/12/23 08/12/23 08/12/23 Range/Units 13:10 14:03 16:18 WBC 9.0 (4.0-11.0) 10^3/uL RBC 4.26 L (4.70-6.10) 10^6/uL Hgb 13.8 L (14.0-18.0) g/dL Hct 40.2 L (42.0-54.0) % MCV 94.4 H (80.0-94.0) fL MCH 32.4 (25.9-34.0) pg MCHC 34.3 (29.9-35.2) g/dL RDW 13.7 (11.0-15.0) % Plt Count 134 L (150-450) 10^3/uL MPV 10.7 (9.5-13.5) fL Neut % (Auto) 74.9 (43.0-75.0) % Lymph % (Auto) 11.6 L (20.5-60.0) % [place] % (Auto) 9.1 (1.7-12.0) % Eos % (Auto) 2.5 (0.9-7.0) % Baso % (Auto) 0.6 (0.2-2.0) % Neut # (Auto) 6.8 H (1.4-6.5) 10^3/uL Lymph # (Auto) 1.1 L (1.2-3.8) 10^3/uL [place] # (Auto) 0.8 (0.3-0.8) 10^3/uL Eos # (Auto) 0.2 (0.0-0.7) 10^3/uL Baso # (Auto) 0.1 (0.0-0.1) 10^3/uL Abs Immat Gran (auto) 0.12 H (0.00-0.03) 10^3/uL Imm/Tot Granulo (auto) 1.3 H (0.0-0.5) % PT 11.9 H (9.0-11.6) sec INR 1.13 Sodium 135 L (136-145) mmol/L Potassium 3.7 (3.5-5.1) mmol/L Chloride 100 (98-107) mmol/L Carbon Dioxide 24.8 (21.0-32.0) mmol/L Anion Gap 13.9 BUN 20.0 H (7.0-18.0) mg/dL Creatinine 1.13 (0.70-1.30) mg/dL Est GFR ( Amer) >60 (>=60) Est GFR (Non-Af Amer) >60 (>=60) BUN/Creatinine Ratio 17.7 Glucose 129 H (74-106) mg/dL Lactate 2.2 H* 1.4 (0.4-2.0) mmol/L Calcium 9.3 (8.5-10.1) mg/dL Total Bilirubin 8.9 H (0.2-1.0) mg/dL Direct Bilirubin 7.0 H* (0.0-0.2) mg/dL AST 85 H (15-37) U/L ALT 45 (16-63) U/L Alkaline Phosphatase 193 H (46-116) U/L Total Protein 6.9 (6.4-8.2) g/dL Albumin 2.4 L (3.4-5.0) g/dL Globulin 4.5 g/dL Albumin/Globulin Ratio 0.5 Amylase 95 (25-115) U/L Lipase 185.0 H (16.0-77.0) U/L Adenovirus (PCR) (NOT DETECTE) C. pneumoniae DNA (PCR) (NOT DETECTE) Coronavirus Type OC43 (NOT DETECTE) Coronavirus Type HKU1 (NOT DETECTE) Coronavirus Type 229E (NOT DETECTE) Coronavirus Type NL63 (NOT DETECTE) Human Metapneumovir PCR (NOT DETECTE) M. pneumoniae (PCR) (NOT DETECTE) Parainfluenza PCR (NOT DETECTE) Parainfluenza 2 (PCR) (NOT DETECTE) Parainfluenza 3 (PCR) (NOT DETECTE) Parainfluenza 4 (PCR) (NOT DETECTE) RSV (RT-PCR) (NOT DETECTE) Entero/Rhino (PCR) (NOT DETECTE) SARS-CoV-2 (PCR) (NOT DETECTE) Bordetella pertussis (PCR) (NOT DETECTE) B parapertussis DNA PCR (NOT DETECTE) Influenza Type A (PCR) (NOT DETECTE) Influenza Type B (PCR) (NOT DETECTE) 08/12/23 Range/Units 17:10 WBC (4.0-11.0) 10^3/uL RBC (4.70-6.10) 10^6/uL Hgb (14.0-18.0) g/dL Hct (42.0-54.0) % MCV (80.0-94.0) fL MCH (25.9-34.0) pg MCHC (29.9-35.2) g/dL RDW (11.0-15.0) % Plt Count (150-450) 10^3/uL MPV (9.5-13.5) fL Neut % (Auto) (43.0-75.0) % Lymph % (Auto) (20.5-60.0) % [place] % (Auto) (1.7-12.0) % Eos % (Auto) (0.9-7.0) % Baso % (Auto) (0.2-2.0) % Neut # (Auto) (1.4-6.5) 10^3/uL Lymph # (Auto) (1.2-3.8) 10^3/uL [place] # (Auto) (0.3-0.8) 10^3/uL Eos # (Auto) (0.0-0.7) 10^3/uL Baso # (Auto) (0.0-0.1) 10^3/uL Abs Immat Gran (auto) (0.00-0.03) 10^3/uL Imm/Tot Granulo (auto) (0.0-0.5) % PT (9.0-11.6) sec INR Sodium (136-145) mmol/L Potassium (3.5-5.1) mmol/L Chloride (98-107) mmol/L Carbon Dioxide (21.0-32.0) mmol/L Anion Gap BUN (7.0-18.0) mg/dL Creatinine (0.70-1.30) mg/dL Est GFR ( Amer) (>=60) Est GFR (Non-Af Amer) (>=60) BUN/Creatinine Ratio Glucose (74-106) mg/dL Lactate (0.4-2.0) mmol/L Calcium (8.5-10.1) mg/dL Total Bilirubin (0.2-1.0) mg/dL Direct Bilirubin (0.0-0.2) mg/dL AST (15-37) U/L ALT (16-63) U/L Alkaline Phosphatase (46-116) U/L Total Protein (6.4-8.2) g/dL Albumin (3.4-5.0) g/dL Globulin g/dL Albumin/Globulin Ratio Amylase (25-115) U/L Lipase (16.0-77.0) U/L Adenovirus (PCR) Not detected (NOT DETECTE) C. pneumoniae DNA (PCR) Not detected (NOT DETECTE) Coronavirus Type OC43 Not detected (NOT DETECTE) Coronavirus Type HKU1 Not detected (NOT DETECTE) Coronavirus Type 229E Not detected (NOT DETECTE) Coronavirus Type NL63 Not detected (NOT DETECTE) Human Metapneumovir PCR Not detected (NOT DETECTE) M. pneumoniae (PCR) Not detected (NOT DETECTE) Parainfluenza PCR Not detected (NOT DETECTE) Parainfluenza 2 (PCR) Not detected (NOT DETECTE) Parainfluenza 3 (PCR) Not detected (NOT DETECTE) Parainfluenza 4 (PCR) Not detected (NOT DETECTE) RSV (RT-PCR) Not detected (NOT DETECTE) Entero/Rhino (PCR) Not detected (NOT DETECTE) SARS-CoV-2 (PCR) Not detected (NOT DETECTE) Bordetella pertussis (PCR) Not detected (NOT DETECTE) B parapertussis DNA PCR Not detected (NOT DETECTE) Influenza Type A (PCR) Not detected (NOT DETECTE) Influenza Type B (PCR) Not detected (NOT DETECTE) Imaging Data US - abdomen: Attestation: I have reviewed the pertinent imaging results. Radiologist's impression: ITS Impressions Upper Quadrant Ultrasound 08/12/23 15:36 IMPRESSION: 1. Incomplete pancreas assessment 2. Hepatomegaly 3. Perihepatic ascites 4. Gallbladder distention, sludge, gallbladder neck calculus without wall thickening, localized pain. Common bile duct 0.5 cm. 5. Nuclear medicine hepatobiliary imaging may be helpful to assess patency of cystic and common bile duct. 6. Polycystic right renal morphology. Electronically authenticated by: SAAD BLACKBURN Date: 08/12/2023 16:40 Procedure: CT abdomen pelvis w con EXAM: CT abdomen pelvis w con HISTORY: Pancreatitis. COMPARISON: CT abdomen and pelvis 12/17/2022. TECHNIQUE: Images of the abdomen and pelvis obtained with IV contrast. FINDINGS: Subsegmental atelectasis in both lung bases. No pleural or pericardial fluid. No adrenal mass or retroperitoneal lymphadenopathy. No obstructive uropathy. Polycystic kidneys redemonstrated. There are numerous layering gallstones, no evidence of biliary or pancreatic ductal dilatation. No indication of pancreatitis. Mild splenic enlargement, spleen measures 15 cm in AP dimension. No bowel obstruction, pneumatosis, or pneumoperitoneum. Normal appendix. There is an ill-defined soft tissue density at the root of the mesentery oriented just anterior to the left kidney on axial image 77 measuring 2.3 x 1.3 cm. This is not identified on the prior noncontrast CT performed less than a year ago. No additional mesenteric lymphadenopathy. No pelvic adenopathy or ascites. Prostate and bladder are age-appropriate. No acute bony abnormality. IMPRESSION: 1. There is no evidence of pancreatitis or biliary obstruction. Gallstones redemonstrated. 2. Indeterminate small soft tissue density nodule in the root of the mesentery. This may reflect mesenteritis. There is no lymphadenopathy or adjacent bowel edema. 3. Polycystic kidneys, unchanged. No obstructive uropathy. Electronically authenticated by: ROSE JORDAN Date: 08/05/2023 05:47 ECG Data Attestation: I personally reviewed and interpreted this ECG as follows: Discharge Plan Discharge Chief Complaint: Abdominal Pain Clinical Impression: Transaminitis, Jaundice, Abdominal pain, Cholelithiasis Patient Disposition: [facility] Time of Disposition Decision: 17:08 Discharge location: [facility] ER Condition: Fair Mode of Transportation: EMS
[2023-08-12] MEDS: 0.9 % SODIUM CHLORIDE 1,000 ML 999 ML IV (13:32)
[2023-08-12] MEDS: MORPHINE SULFATE 4 MG/ML VIAL IV ×2 (13:33→21:50)
[2023-08-12 13:40] LABS: Basophils Absolute Auto 0.1 10^3/uL (0.0-0.1); Basophils Percent Auto 0.6 % (0.2-2.0); Eosinophils Absolute Auto 0.2 10^3/uL (0.0-0.7); Eosinophils Percent Auto 2.5 % (0.9-7.0); Hematocrit 40.2 % (42.0-54.0); Hemoglobin 13.8 g/dL (14.0-18.0); Immature Granulocytes Abs Auto 0.12 10^3/uL (0.00-0.03); Immature Granulocytes Pct Auto 1.3 % (0.0-0.5); Lymphocytes Absolute Auto 1.1 10^3/uL (1.2-3.8); Lymphocytes Percent Auto 11.6 % (20.5-60.0); Mean Corpuscular HGB Conc 34.3 g/dL (29.9-35.2); Mean Corpuscular Hemoglobin 32.4 pg (25.9-34.0); Mean Corpuscular Volume 94.4 fL (80.0-94.0); Mean Platelet Volume 10.7 fL (9.5-13.5); Monocytes Absolute Auto 0.8 10^3/uL (0.3-0.8); Monocytes Percent Auto 9.1 % (1.7-12.0); Neutrophils Absolute Auto 6.8 10^3/uL (1.4-6.5); Neutrophils Percent Auto 74.9 % (43.0-75.0); Platelet Count 134 10^3/uL (150-450); Red Blood Count 4.26 10^6/uL (4.70-6.10); Red Cell Distribution Width 13.7 % (11.0-15.0)
[2023-08-12 13:43] LABS: Amylase 95 U/L (25-115)
[2023-08-12 13:58] LABS: Alanine Aminotransferase 45 U/L (16-63); Albumin Globulin Ratio 0.5; Albumin Level 2.4 g/dL (3.4-5.0); Alkaline Phosphatase 193 U/L (46-116); Anion Gap 13.9; Aspartate Amino Transferase 85 U/L (15-37); BUN Creatinine Ratio 17.7; Bilirubin Total 8.9 mg/dL (0.2-1.0); Calcium 9.3 mg/dL (8.5-10.1); Carbon Dioxide 24.8 mmol/L (21.0-32.0); Chloride 100 mmol/L (98-107); Estimated GFR (African America >60 (>=60); Estimated GFR (Non-African Ame >60 (>=60); Globulin 4.5 g/dL; Glucose 129 mg/dL (74-106); Potassium 3.7 mmol/L (3.5-5.1); Sodium 135 mmol/L (136-145); Total Protein 6.9 g/dL (6.4-8.2)
[2023-08-12 14:03] LABS: Lactate/Lactic Acid 2.2 mmol/L (0.4-2.0)
[2023-08-12 14:27] LABS: INR 1.13; Prothrombin Time 11.9 sec (9.0-11.6)
--- NOTE | 2023-08-12 15:36 | US_ITS ---
[address] [address] Patient Name: JIMBO CASTILLO MRN: [id number] date: 1955 Sex: M Assigned Patient Location: ED.MAIN Current Patient Location: ER Accession/Order Number: [id number] Exam Date: 08/12/2023 15:45 Report Date: 08/12/2023 16:40 At the request of: MELISSA BONILLA Procedure: US right upper quadrant PROCEDURE: US right upper quadrant, 08/12/2023 3:45 PM EDT CLINICAL INDICATIONS: Right upper quadrant abdominal pain, jaundice COMPARISON: 08/05/2023 TECHNIQUE: Right upper quadrant abdominal sonogram, grayscale, color assessment. FINDINGS: Visualized pancreas is unremarkable. No ductal dilatation is seen. Portions of head and tail segment obscured. Peripancreatic fluid collection is not evident. Hepatic assessment limited given necessity for intercostal imaging. Right lobe is prominent up to 17.3 cm craniocaudally. Visualized portal vein patent, antegrade flow, normal velocity. A focal hepatic abnormality is not suspected. Perihepatic ascites is seen. Gallbladder sludge is seen. Gallbladder is distended up to 10.4 cm. Dependent gallbladder calculi are seen near the neck level. Wall thickening or localized pain is not evident. Common bile duct 0.5 cm. Right kidney: 13.7 x 6.8 x 7.9 cm. Polycystic changes of the right kidney are noted. Hydronephrosis or calculus are not evident. US/US right upper quadrant IMPRESSION: 1. Incomplete pancreas assessment 2. Hepatomegaly 3. Perihepatic ascites 4. Gallbladder distention, sludge, gallbladder neck calculus without wall thickening, localized pain. Common bile duct 0.5 cm. 5. Nuclear medicine hepatobiliary imaging may be helpful to assess patency of cystic and common bile duct. 6. Polycystic right renal morphology. Electronically authenticated by: SAAD BLACKBURN Date: 08/12/2023 16:40
[2023-08-12 16:43] LABS: Lactate/Lactic Acid 1.4 mmol/L (0.4-2.0)
[2023-08-12 17:18] LABS: Adenovirus NOT DETECTED (NOT DETECTE); Bordetella parapertussis NOT DETECTED (NOT DETECTE); Coronavirus 229E NOT DETECTED (NOT DETECTE); Coronavirus HKU1 NOT DETECTED (NOT DETECTE); Coronavirus NL63 NOT DETECTED (NOT DETECTE); Coronavirus OC43 NOT DETECTED (NOT DETECTE); Human Metapneumovirus NOT DETECTED (NOT DETECTE); Human Rhinovirus/Enterovirus NOT DETECTED (NOT DETECTE); Influenza A NOT DETECTED (NOT DETECTE); Influenza B NOT DETECTED (NOT DETECTE); Mycoplasma pneumoniae NOT DETECTED (NOT DETECTE); Parainfluenza Virus 1 NOT DETECTED (NOT DETECTE); Parainfluenza Virus 2 NOT DETECTED (NOT DETECTE); Parainfluenza Virus 3 NOT DETECTED (NOT DETECTE); Parainfluenza Virus 4 NOT DETECTED (NOT DETECTE); Respiratory Syncytial Virus NOT DETECTED (NOT DETECTE); SARS-CoV-2 NOT DETECTED (NOT DETECTE)
[2023-08-12] MEDS: FENTANYL CITRATE/PF 100 MCG/2 ML VIAL 50 MCG IV (19:43)
--- NOTE | 2023-08-12 22:18 | PC.NURSE ---
[facility]
--- NOTE | 2023-08-12 22:24 | PC.NURSE ---
Report called to MARLIN Hdez at the [facility] department.
== END 2023-08-12 22:24 | disposition short-term general hospital (02) ==
PROVIDERS: Physician Assistant; Emergency Provider Emergency Medicine Emergency Medical Services
DX: K80.20 Calculus of gallbladder without cholecystitis without obstruction (principal); R74.01 Elevation of levels of liver transaminase levels; R17 Unspecified jaundice; R10.9 Unspecified abdominal pain; Z79.82 Long term (current) use of aspirin; Z79.899 Other long term (current) drug therapy; Z20.822 Contact with and (suspected) exposure to COVID-19
CPT/HCPCS: 0202U; 36415; 76705; 80053; 82150; 82248; 83605; 83690; 85025; 85610; 93005; 96374; 96375; 96376; 99285

== ENCOUNTER 2023-08-25 07:16 | Emergency (ER) | payer OTHER, SELFPAY ==
[2023-08-25] VITALS (41 sets, daily range): BP systolic 113–141; BP diastolic 62–82; PULSE 66–90; TEMP 36.8; O2SAT 92–98; BMI 27.9
--- NOTE | 2023-08-25 07:34 | ECG_ITS ---
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
--- NOTE | 2023-08-25 07:36 | ED_ITS ---
HPI - Abdominal Pain General Chief Complaint: Abdominal Pain Stated Complaint: ABDOMINAL PAIN, SOB Time Seen by Provider: 08/25/23 07:19 Source: patient Mode of arrival: walk-in Limitations: no limitations History of Present Illness HPI narrative: 67-year-old male to the emergency department with chief complaint of right upper quadrant pain. Patient reports that he knows he has a bad gallbladder. He reports that he has been worked up for this several times and has a plan to take his gallbladder out at the [facility] in the future. Patient has been undergoing workup due to fatty liver disease causing cirrhosis. He reports that he has been seen at several facilities. He does not know how bad it is or what his prognosis is. Patient reports he was recently transferred for abnormal labs. Related Data Home Medications ?Medication ?Instructions ?Recorded ?Confirmed aspirin 81 mg capsule 81 mg PO DAILY 08/12/23 08/25/23 cholecalciferol (vitamin D3) 50 50 mcg PO DAILY 08/12/23 08/25/23 mcg (2,000 unit) capsule losartan 100 mg tablet (Cozaar) 100 mg PO DAILY 08/12/23 08/25/23 nortriptyline 10 mg capsule 10 mg PO .hs 08/12/23 08/12/23 pantoprazole 40 mg tablet,delayed 40 mg PO DAILY 08/12/23 08/25/23 release (Protonix) propranolol 10 mg tablet 10 mg PO BID 08/12/23 08/25/23 Previous Rx's ?Medication ?Instructions ?Recorded dicyclomine 10 mg capsule 10 mg PO QID PRN abdominal pain 08/05/23 #20 caps tramadol 50 mg tablet 50 mg PO Q6H PRN pain 5 days #20 08/05/23 tabs Allergies Allergy/AdvReac Type Severity Reaction Status Date / Time amoxicillin Allergy Severe shortness Verified 08/25/23 07:21 of breath lisinopril Allergy Severe Verified 08/25/23 07:21 Review of Systems ROS Status of ROS 10 or more systems reviewed and unremark able except as noted in history and below Exam Narrative Exam Narrative: VITALS: I have reviewed the triage vital signs. GENERAL: Uncomfortable appearing adult male holding his upper abdomen NEURO: Alert and oriented. Moves all extremities. Face is symmetric and expressive. EYES: PERRL. No scleral icterus or conjunctival injection. No discharge. HENT: Normocephalic, atraumatic. Hearing is grossly intact. Nares grossly patent and without discharge. Mucous membranes moist. NECK: No JVD. Patient moves neck without restriction. CARDIO: Rhythm regular. Normal rate. No murmur, rub, or gallop. Pulses equal bilaterally in the upper and lower extremity. No lower extremity edema. PULM: Lungs clear to auscultation in all med[place]. No wheezes, rales, or rhonchi. No conversational dyspnea. No splinting, stridor, or accessory muscle use. GI/: Abdomen is soft. Right upper quadrant tenderness.Normoactive bowel sounds. EXTREMITIES: Symmetric muscle bulk. No joint swelling. No clubbing, cyanosis, or deformity. SKIN: Mild jaundiced skin.Warm and dry. Normal turgor. No rash or lesions appreciated. PSYCH: Mood, affect, and interaction is appropriate to the setting. Constitutional Vital Signs, click to edit/add: Last Vital Signs Temp 98.3 F 08/25/23 07:21 Pulse 79 08/25/23 11:20 Resp 25 H 08/25/23 11:20 BP 123/77 08/25/23 11:00 Pulse Ox 93 L 08/25/23 11:20 O2 Del Method Room Air 08/25/23 07:21 Course Vital Signs Vital signs: Vital Signs Temperature 98.3 F 08/25/23 07:21 Pulse Rate 66 08/25/23 07:21 Respiratory Rate 20 08/25/23 07:21 Blood Pressure 141/79 08/25/23 07:21 Pulse Oximetry 98 08/25/23 07:21 Oxygen Delivery Method Room Air 08/25/23 07:21 Temperature 98.3 F 08/25/23 07:21 Pulse Rate 79 08/25/23 11:20 Respiratory Rate 25 H 08/25/23 11:20 Blood Pressure 123/77 08/25/23 11:00 Pulse Oximetry 93 L 08/25/23 11:20 Oxygen Delivery Method Room Air 08/25/23 07:21 MDM - Abdominal Pain MDM Narrative Medical decision making narrative: 67-year-old male to the emergency department to the right upper quadrant pain. Beginning last night but has been patient. He reports he has a bad gallbladder and needs it out . Vital stable, the patient is afebrile. He does appear to have some mild jaundice. He reports a history of fatty liver disease causing cirrhosis but does not have any further details. Paucity of details provided by the patient I attempted to look him up on clin[facility]ync. He receives care at multiple facilities however no information from his recent visit to the [facility] is able to be obtained.We'll obtain basic labs, CT scan abdomen pelvis IV contrast. Pain and nausea medication is ordered. Fluids are ordered. Patient agrees with this plan. Labs reviewed. MELD score is 20 today. He does have leukocytosis as well as an acute kidney injury. CT scan shows acute cholecystitis. Given his severe penicillin ALLERGY is started on Levaquin and Flagyl as empiric coverage. I discussed with Dr. Sutton the on-call surgeon who reports that her served by tertiary care given his history of cirrhosis. Case was discussed with [facility] [place] who accepts the patient ED to ED. Lab Data Attestation: I reviewed the patient's lab results. Labs: Lab Results 08/25/23 Range/Units 07:45 WBC 20.3 H (4.0-11.0) 10^3/uL RBC 3.50 L (4.70-6.10) 10^6/uL Hgb 11.5 L (14.0-18.0) g/dL Hct 33.6 L (42.0-54.0) % MCV 96.0 H (80.0-94.0) fL MCH 32.9 (25.9-34.0) pg MCHC 34.2 (29.9-35.2) g/dL RDW 13.6 (11.0-15.0) % Plt Count 282 (150-450) 10^3/uL MPV 11.2 (9.5-13.5) fL Seg Neuts % (Manual) 81.0 Band Neutrophils % 3.0 (0-5) % Lymphocytes % (Manual) 7.0 L (20.5-60.0) % Monocytes % (Manual) 7.0 (1.7-12.0) % Eosinophils % (Manual) 1.0 (0.9-7.0) % Basophils % (Manual) 1.0 (0.2-2.0) % Neutrophils # (Manual) 16.44 H (1.4-6.5) 10^3/uL Band Neutrophils # 0.6 H (0.0-0.3) 10^3/uL Lymphocytes # (Manual) 1.42 (1.20-3.80) 10^3/uL Monocytes # (Manual) 1.42 H (0.30-0.80) 10^3/uL Eosinophils # (Manual) 0.20 (0.00-0.70) 10^3/uL Basophils # (Manual) 0.20 H (0.00-0.10) 10^3/uL PT 11.7 H (9.0-11.6) sec INR 1.11 APTT 30.6 (22.3-36.2) sec Sodium 132 L (136-145) mmol/L Potassium 4.0 (3.5-5.1) mmol/L Chloride 97 L (98-107) mmol/L Carbon Dioxide 22.7 (21.0-32.0) mmol/L Anion Gap 16.3 BUN 23.0 H (7.0-18.0) mg/dL Creatinine 1.83 H (0.70-1.30) mg/dL Est GFR ( Amer) 45 L (>=60) Est GFR (Non-Af Amer) 37 L (>=60) BUN/Creatinine Ratio 12.6 Glucose 151 H (74-106) mg/dL Lactate 1.6 (0.4-2.0) mmol/L Calcium 9.7 (8.5-10.1) mg/dL Total Bilirubin 5.9 H (0.2-1.0) mg/dL Direct Bilirubin 4.0 H* (0.0-0.2) mg/dL AST 97 H (15-37) U/L ALT 73 H (16-63) U/L Alkaline Phosphatase 315 H (46-116) U/L Troponin I High Sens 6.5 (4.0-76.1) pg/mL Total Protein 8.3 H (6.4-8.2) g/dL Albumin 2.5 L (3.4-5.0) g/dL Globulin 5.8 g/dL Albumin/Globulin Ratio 0.4 Lipase 106.0 H (16.0-77.0) U/L Imaging Data CT scan - abdomen: Attestation: I have reviewed the pertinent imaging results. Radiologist's impression: ITS Impressions Abdomen/Pelvis CT 08/25/23 08:41 IMPRESSION: 1. Markedly dilated gallbladder containing stones. The gallbladder wall thickening is adjacent stranding of fat concerning for acute cholecystitis. 2. Other nonemergent findings, as described above. Electronically authenticated by: AKASH NAGY Date: 08/25/2023 09:03 ECG Data Attestation: ?I have reviewed the pertinent ECG results. Critical Care Time Critical Care Time Critical Care Time: Yes Total Critical Care Time: 35 Attestation: Critical Care Procedure Note Authorized and Performed by: Lemuel Pak DO Total critical care time: 35 min Due to a high probability of clinically significant, life threatening deterioration, the patient required my highest level of preparedness to intervene emergently and I personally spent this critical care time directly and personally managing the patient. This critical care time included obtaining a history; examining the patient; pulse oximetry; ordering and review of studies; arranging urgent treatment with development of a management plan; evaluation of patient's response to treatment; frequent reassessment; and, discussions with other providers. This critical care time was performed to assess and manage the high probability of imminent, life-threatening deterioration that could result in multi-organ failure. It was exclusive of separately billable procedures and treating other patients and teaching time. Please see MDM section and the rest of the note for further information on patient assessment and treatment. Discharge Plan Discharge Chief Complaint: Abdominal Pain Clinical Impression: Acute renal failure, Acute cholecystitis Patient Disposition: [facility] Time of Disposition Decision: 12:37 Discharge location: [facility] [place] Condition: Fair Mode of Transportation: EMS Prescriptions / Home Meds: No Action tramadol 50 mg tablet 50 mg PO Q6H PRN (Reason: pain) 5 Days Qty: 20 0RF dicyclomine 10 mg capsule 10 mg PO QID PRN (Reason: abdominal pain) Qty: 20 0RF nortriptyline 10 mg capsule 10 mg PO .hs pantoprazole [Protonix] 40 mg tablet,delayed release (DR/EC) 40 mg PO DAILY cholecalciferol (vitamin D3) 50 mcg (2,000 unit) capsule 50 mcg PO DAILY losartan [Cozaar] 100 mg tablet 100 mg PO DAILY aspirin 81 mg capsule 81 mg PO DAILY propranolol 10 mg tablet 10 mg PO BID Patient Comments: Just ordered 08/11/23 has not started yet. Was prescribed in hospital. Print Language: French Referrals: Physician,Non-Staff, MD [Primary Care Provider] - 1 week
[2023-08-25 07:58] LABS: Hematocrit 33.6 % (42.0-54.0); Hemoglobin 11.5 g/dL (14.0-18.0); Mean Corpuscular HGB Conc 34.2 g/dL (29.9-35.2); Mean Corpuscular Hemoglobin 32.9 pg (25.9-34.0); Mean Platelet Volume 11.2 fL (9.5-13.5); Platelet Count 282 10^3/uL (150-450); Red Cell Distribution Width 13.6 % (11.0-15.0); White Blood Count 20.3 10^3/uL (4.0-11.0)
[2023-08-25 08:10] LABS: INR 1.11; Lactate/Lactic Acid 1.6 mmol/L (0.4-2.0); Partial Thromboplastin Time 30.6 sec (22.3-36.2); Prothrombin Time 11.7 sec (9.0-11.6)
[2023-08-25] MEDS: ONDANSETRON PF 4 MG/2 ML VIAL IV (08:10)
[2023-08-25] MEDS: HYDROMORPHONE HCL 1 MG/ML CARTRIDGE IVP (08:10)
[2023-08-25] MEDS: 0.9 % SODIUM CHLORIDE 1,000 ML 999 ML IV (08:10)
[2023-08-25 08:16] LABS: Alanine Aminotransferase 73 U/L (16-63); Albumin Globulin Ratio 0.4; Albumin Level 2.5 g/dL (3.4-5.0); Alkaline Phosphatase 315 U/L (46-116); Anion Gap 16.3; Aspartate Amino Transferase 97 U/L (15-37); BUN Creatinine Ratio 12.6; Bilirubin Total 5.9 mg/dL (0.2-1.0); Calcium 9.7 mg/dL (8.5-10.1); Carbon Dioxide 22.7 mmol/L (21.0-32.0); Chloride 97 mmol/L (98-107); Estimated GFR (African America 45 (>=60); Estimated GFR (Non-African Ame 37 (>=60); Globulin 5.8 g/dL; Glucose 151 mg/dL (74-106); Sodium 132 mmol/L (136-145); Total Protein 8.3 g/dL (6.4-8.2); Troponin I High Sensitivity 6.5 pg/mL (4.0-76.1)
[2023-08-25 08:18] LABS: Band Neutrophils Absolute 0.6 10^3/uL (0.0-0.3); Segmented Neut Absolute Manual 16.44 10^3/uL (1.4-6.5)
[2023-08-25 08:19] LABS: Lymphocytes Absolute Manual 1.42 10^3/uL (1.20-3.80); Monocytes Absolute Manual 1.42 10^3/uL (0.30-0.80)
--- NOTE | 2023-08-25 08:41 | CT_ITS ---
The [address] [address] Patient Name: JIMBO CASTILLO MRN: [id number] date: 1955 Sex: M Assigned Patient Location: ER Current Patient Location: Accession/Order Number: [id number] Exam Date: 08/25/2023 08:24 Report Date: 08/25/2023 09:03 At the request of: NAVID MALDONADO Procedure: CT abdomen pelvis w con EXAM: CT abdomen pelvis w con HISTORY: RUQ pain COMPARISON: None. TECHNIQUE: Following intravenous administration of 100 cc of Omnipaque 300, axial soft tissue windows of the abdomen and pelvis were performed with coronal and sagittal reformats. CT dose reduction technique was used including Automated Exposure Control. Findings: Mild bilateral lower lobe atelectasis. ABDOMEN: The gallbladder is markedly distended. There are small stones within the gallbladder lumen. There is gallbladder wall thickening and adjacent stranding of the fat. The liver, pancreas, and adrenal glands are unremarkable. The spleen is mildly enlarged measuring 14.0 cm in the craniocaudal dimension. Redemonstrated are multiple renal cysts as well as low-attenuation lesions, too small to characterize. Punctate nonobstructing stone within the interpolar region of the right kidney. The bilateral ureters are nondilated. Evaluation of the bowel is limited given the absence of oral contrast. No bowel obstruction. The appendix is nondilated. The aorta is normal caliber. Mild atherosclerotic disease. No enlarged abdominal lymph nodes. Small amount of perihepatic free fluid. The previously identified soft tissue at the root of the mesentery is smaller when compared to prior study and currently measures approximately 1.3 x 0.7 cm. Pelvis: Mild circumferential bladder wall thickening. The prostate is nonenlarged. No enlarged pelvic lymph nodes. Small amount of free fluid within the pelvis. No enlarged pelvic lymph nodes or free pelvic fluid. Mild multilevel degenerative spondylosis. CT/CT abdomen pelvis w con IMPRESSION: 1. Markedly dilated gallbladder containing stones. The gallbladder wall thickening is adjacent stranding of fat concerning for acute cholecystitis. 2. Other nonemergent findings, as described above. Electronically authenticated by: AKASH NAGY Date: 08/25/2023 09:03
[2023-08-25] MEDS: METRONIDAZOLE/SODIUM CHLORIDE 500 MG/100 ML PREMIX 100 MG IV (09:35)
[2023-08-25] MEDS: LEVOFLOXACIN IN DEXTROSE 5 % 750 MG/150 ML IV.SOLN 100 MG IV (10:34)
[2023-08-25] MEDS: HYDROMORPHONE HCL 0.5 MG/0.5 ML SYRINGE IV ×2 (12:31→15:39)
== END 2023-08-25 15:43 | disposition short-term general hospital (02) ==
PROVIDERS: Emergency Provider Student in an Organized Health Care Education/Training Program
DX: K81.0 Acute cholecystitis (principal); N17.9 Acute kidney failure, unspecified; Z79.82 Long term (current) use of aspirin; Z79.899 Other long term (current) drug therapy
CPT/HCPCS: 36415; 74177; 80053; 80076; 83605; 83690; 84484; 85007; 85027; 85610; 85730; 93005; 96365; 96366; 96368; 96375; 96376; 99285; J1170; Q9967

== ENCOUNTER 2023-09-28 20:50 | Emergency (ER) | payer OTHER, SELFPAY ==
[2023-09-28 21:34] VITALS: BP 151/86; PULSE 80; TEMP 37.2; O2SAT 99; BMI 15.1
--- NOTE | 2023-09-28 21:53 | ED.GENADUL1 ---
HPI HPI - General Adult General Stated complaint: DRIP BAG LEAKING Time Seen by Provider: 09/28/23 21:16 Source: patient Mode of arrival: walk-in Limitations: no limitations History of Present Illness HPI narrative: This 67-year-old male who has a biliary drain that was placed at the [facility] in [place] and is scheduled for gallbladder surgery in October presents for evaluation of leaking from the biliary drain. The patient states he took a nap and when he woke up there was some yellow liquid on his clothes that appeared to be draining from the dressing. He has a LIANA drain/drain tube in his right upper quadrant. It is draining dark brown liquid. He denies any fever or abdominal pain. The patient states it was placed because he went to the [facility] because he was jaundiced and having severe pain and found to have an infected gallbladder. He has been having dressing changes by visiting nurse. The last time the dressing was changed was on September 24, last . Related Data Home Medications ?Medication ?Instructions ?Recorded ?Confirmed aspirin 81 mg capsule 81 mg PO DAILY 08/12/23 08/25/23 cholecalciferol (vitamin D3) 50 50 mcg PO DAILY 08/12/23 08/25/23 mcg (2,000 unit) capsule losartan 100 mg tablet (Cozaar) 100 mg PO DAILY 08/12/23 08/25/23 nortriptyline 10 mg capsule 10 mg PO .hs 08/12/23 08/12/23 pantoprazole 40 mg tablet,delayed 40 mg PO DAILY 08/12/23 08/25/23 release (Protonix) propranolol 10 mg tablet 10 mg PO BID 08/12/23 08/25/23 Previous Rx's ?Medication ?Instructions ?Recorded dicyclomine 10 mg capsule 10 mg PO QID PRN abdominal pain 08/05/23 #20 caps tramadol 50 mg tablet 50 mg PO Q6H PRN pain 5 days #20 08/05/23 tabs Allergies Allergy/AdvReac Type Severity Reaction Status Date / Time amoxicillin Allergy Severe shortness Verified 09/28/23 21:39 of breath lisinopril Allergy Severe Verified 09/28/23 21:39 Opioid HPI Opioid Management Most Recent Opioid Data: Last Pain Scale 1 08/12/23 20:07 Review of Systems ROS Status of ROS 10 or more systems reviewed and unremarkable except as noted in history and below Exam Narrative Exam Narrative: Vital signs and Nursing Notes reviewed: He is afebrile with a normal pulse, blood pressure is elevated at 151/86, he is not hypoxic with pulse ox of 99% on room air General: Awake, alert, oriented, no acute distress, lying comfortably on the stretcher HEENT: Normocephalic atraumatic, mucous membranes are moist and pink, eyes are clear, normal conjunctiva, no scleral icterus Neck: Supple, no meningeal signs, no anterior or posterior cervical lymphadenopathy Chest: Lungs are clear to auscultation with good air entry, there is no wheezing rhonchi or rales appreciated no accessory muscle use, patient is speaking in complete sentences-no chest wall tenderness to palpation CVS: Regular rate and rhythm S1-S2, no murmurs rubs or gallops, pulses are brisk and equal bilaterally ABD: Soft, nondistended, nontender, no rebound guarding or rigidity, bowel sounds are normal, there is a biliary drain tube in the right upper quadrant connected to a LIANA drain. There is a small amount of yellow liquid inside the dressing. Extremities: Moving all extremities, no lower extremity tenderness or swelling noted, negative Homans' sign, pulses are brisk and equal bilaterally Skin: Normal in appearance without rash,pallor, petechiae or purpura Neuro: No focal deficits Constitutional Vital Signs, click to edit/add: Last Vital Signs Temp 98.9 F 09/28/23 21:34 Pulse 80 09/28/23 21:34 Resp 18 09/28/23 21:34 BP 151/86 H 09/28/23 21:34 Pulse Ox 99 09/28/23 21:34 O2 Del Method Room Air 09/28/23 21:34 Course Vital Signs Vital signs: Vital Signs Temperature 98.9 F 09/28/23 21:34 Pulse Rate 80 09/28/23 21:34 Respiratory Rate 18 09/28/23 21:34 Blood Pressure 151/86 H 09/28/23 21:34 Pulse Oximetry 99 09/28/23 21:34 Oxygen Delivery Method Room Air 09/28/23 21:34 Temperature 98.9 F 09/28/23 21:34 Pulse Rate 80 09/28/23 21:34 Respiratory Rate 18 09/28/23 21:34 Blood Pressure 151/86 H 09/28/23 21:34 Pulse Oximetry 99 09/28/23 21:34 Oxygen Delivery Method Room Air 09/28/23 21:34 Discharge Plan Discharge Stand Alone Forms: Portal Instructions Clinical Impression: Dressing change Patient Disposition: Home, Self-Care Time of Disposition Decision: 21:53 Condition: Good Prescriptions / Home Meds: No Action tramadol 50 mg tablet 50 mg PO Q6H PRN (Reason: pain) 5 Days Qty: 20 0RF dicyclomine 10 mg capsule 10 mg PO QID PRN (Reason: abdominal pain) Qty: 20 0RF nortriptyline 10 mg capsule 10 mg PO .hs pantoprazole [Protonix] 40 mg tablet,delayed release (DR/EC) 40 mg PO DAILY cholecalciferol (vitamin D3) 50 mcg (2,000 unit) capsule 50 mcg PO DAILY losartan [Cozaar] 100 mg tablet 100 mg PO DAILY aspirin 81 mg capsule 81 mg PO DAILY propranolol 10 mg tablet 10 mg PO BID Patient Comments: Just ordered 08/11/23 has not started yet. Was prescribed in hospital. Print Language: Greek Referrals: Physician,Non-Staff, MD [Primary Care Provider] - 1 week Procedures ED Procedure Instructions Procedures Procedures: This patient presents for evaluation of leaking from his biliary drain. His dressing was taken down. There appears to be a very small amount of drainage at the ostia at the level of the skin. It is otherwise intact with nothing that appears to be broken or actively leaking. The skin was cleaned and dried and the dressing was replaced. [facility].
== END 2023-09-28 22:03 | disposition home or self-care (01) ==
PROVIDERS: Emergency Provider Emergency Medicine
DX: Z48.01 Encounter for change or removal of surgical wound dressing (principal)
CPT/HCPCS: 99282